=== PATIENT | male | born 1980 | race African-American/Black ===

== ENCOUNTER 2023-03-05 10:58 | Emergency (ER) | payer OTHER ==
[~2023-03-05] VITALS: Ht 172.7 cm; Wt 81.8 kg
[2023-03-05 11:00] VITALS: BP 133/83
== END 2023-03-05 15:11 | disposition left against medical advice (07) ==
LOC: M ED 10:58
DX: H53.141 Visual discomfort, right eye (principal); Z53.21 Procedure and treatment not carried out due to patient leaving prior to being seen by health care provider